=== PATIENT | female | born 2000 | race African-American/Black ===

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

== ENCOUNTER 2022-11-12 21:31 | Emergency (ER) | payer MEDICAID, OTHER ==
[~2022-11-12] VITALS: Ht 160 cm; Wt 69.0 kg
[2022-11-12 22:09] VITALS: BP 106/74; O2SAT 99
[2022-11-12 23:21] LABS: CLARITY URINE CLEAR (CLEAR); COLOR URINE YELLOW (YELLOW); GLUCOSE URINE NEGATIVE (NEGATIVE); KETONES URINE NEGATIVE (NEGATIVE); LEUKOCYTE ESTERASE URINE NEGATIVE (NEGATIVE); NITRITE URINE NEGATIVE (NEGATIVE); OCCULT BLOOD URINE NEGATIVE (NEGATIVE); PH URINE 6.5 (4.5-8.0); PROTEIN URINE NEGATIVE (NEGATIVE); SPECIFIC GRAVITY URINE 1.024 (1.005-1.030); UROBILINOGEN URINE 0.2 E.U./dL (0.2-1.0)
[2022-11-13] MEDS ORDERED: LIDOCAINE HCL/PF 1% 10 MG/ML 5ML VIAL INFIL ONE (00:30)
[2022-11-13] MEDS ORDERED: CEFTRIAXONE SODIUM 500 MG/VIAL IM ONE (00:30)
[2022-11-13] MEDS ORDERED: DOXY100T28 PO (01:10)
[2022-11-13 01:26] VITALS: PULSE 84; RESP 18; TEMP 98.5
[2022-11-17 04:07] LABS: CHLAMYDIA TRACHOMATIS NAA Negative (Negative); NEISSERIA GONORRHOEAE NAA Positive (Negative)
== END 2022-11-13 01:28 | disposition home or self-care (01) ==
LOC: ER 21:31
DX: N72 Inflammatory disease of cervix uteri (principal); A64 Unspecified sexually transmitted disease; J45.909 Unspecified asthma, uncomplicated
CPT/HCPCS: 81003; 81025; 99283; 87491; 87591; 87210; 96372; J0696; J3490; Z7610 ×2